=== PATIENT | male | born 1945 | race Caucasian/White ===

== ENCOUNTER 2018-02-07 14:31 | Outpatient (CLI) | payer MEDICARE, OTHER ==
--- NOTE | 2018-02-07 15:39 | RAD ---
LEFT SHOULDER THREE VIEWS: History: 72-year-old male with left shoulder pain. History of CVA affecting right side. Comparison: 09-17-15 chest x-ray FINDINGS: Marked AC joint arthrosis changes as well as glenohumeral joint arthropathy. There is a focal area of somewhat nodular ossification noted along the medial aspect of the proximal humeral metadiaphysis. T his area appear stable when compared to the prior 09-17-15 study. IMPRESSION: Stable appearing degenerative changes AC joint, glenohumeral joint, as well as some nodular stable os sification along the medial aspect of the proximal humeral metadiaphysis. POS: [facility]
== END 2018-02-07 14:32 | disposition home or self-care (01) ==
LOC: TBSIIMAG 14:31
PROVIDERS: ATTEND Psychiatry & Neurology Neurology
DX: M25.512 Pain in left shoulder (principal); M19.112 Post-traumatic osteoarthritis, left shoulder; M19.012 Primary osteoarthritis, left shoulder; M89.8X2 Other specified disorders of bone, upper arm

== ENCOUNTER 2018-07-19 16:24 | Inpatient (IN) | payer MEDICARE, OTHER ==
[~2018-07-19 16:24] MED LIST: ISOVUE-370 76%-LOCM 1 ML ONE
[2018-07-19 16:45] LABS: #Eosinphils 0.4 thou/uL (0.0-0.7); #Monocytes 0.6 thou/uL (0.11-0.59); #Neutrophils 3.6 thou/uL (1.40-6.50); %Basophils 0.3 % (0.0-1.0); %Eosinophils 6.4 % (0.0-10.0); %Lymphocytes 29.6 % (21.0-51.0); %Monocytes 9.6 % (0.0-10.0); %Neutrophils 54.2 % (42.0-75.0); Hemoglobin 12.1 g/dL (14.0-18.0); Mean Corpuscular HGB CONC 33.6 g/dL (32.0-36.0); Mean Corpuscular Hemoglobin 31.6 pg (27.0-31.0); Mean Corpuscular Volume 93.8 fL (78.0-98.0); Mean Platelet Volume 8.4 fL (7.4-10.4); Platelet Count 275 thou/uL (130-400); RBC Distribution Width 12.5 % (11.5-14.5); Red Blood Cell (RBC) Count 3.82 mill/uL (4.70-6.10); White Blood Cell (WBC) Count 6.7 thou/uL (4.8-10.8)
[2018-07-19 16:52] LABS: PTT 26.7 SEC (22.9-36.1); Prothrombin Time 13.5 SEC (12.0-14.7)
[2018-07-19 16:57] LABS: ALT (SGPT) 19 U/L (8-55); AST (SGOT) 27 U/L (5-34); Alkaline Phosphatase 92 U/L (40-150); Anion Gap 15 mmol/L (10-20); BUN (Urea Nitrogen) 13 mg/dL (8.4-25.7); Bilirubin, Total 0.3 mg/dL (0.2-1.2); Calc. Creatinine Clearance 0 mL/min (70-130); Calcium 9.6 mg/dL (7.8-10.44); Carbon Dioxide 24 mmol/L (23-31); Chloride 108 mmol/L (98-107); Estimated GFR-MDRD 78; Globulin 3.2 g/dL (2.4-3.5); Glucose 138 mg/dL (83-110); Potassium 4.5 mmol/L (3.5-5.1); Protein, Total 7.2 g/dL (5.8-8.1); Sodium 142 mmol/L (136-145)
[2018-07-19 16:59] LABS: CKMB 2.4 ng/mL (0-6.6); Troponin I Less than 0.010 ng/mL (< 0.028)
--- NOTE | 2018-07-19 17:25 | CT ---
HEAD CT WITHOUT CONTRAST: Date: 07/19/18 HISTORY: Patient was found by his . Right-sided weakness. Stroke alert. COMPARISON: 03/04/17. FINDINGS: Stable malacic changes involving the left cerebrum due to remote CVA. There is worsening loss of warner -white matter differentiation involving the left occipital lobe. Indeterminate infarct. There is no e vidence of hydrocephalus. With regard to the right cerebrum, cortical warner-white matter differentiati on is preserved. Calvarium is intact. Adequate aeration of sinuses and mastoid air cells. IMPRESSION: Remote left cerebral insult. Indeterminate insult involving the left occipital lobe. Results of study discussed with Dr. Kwon on 07/19/18 at 1656 hours. CODE CR. POS: [facility]
--- NOTE | 2018-07-19 17:48 | CT ---
CT CERVICAL SPINE NONCONTRAST: 07/19/18 HISTORY: 72-year-old male status post acute cervical trauma from fall. Patient was found down. TECHNIQUE: Although this was supposed to be a noncontrast CT of the cervical spine, there is contrast material i n the visualized arteries and veins, because this was performed along with a CT angiogram of the head . FINDINGS: There are no jumped or perched facets. There is no evidence of acute fracture. The vertebral body h eights are maintained. There is no prevertebral soft tissue swelling. There are degenerative disc c hanges and facet osteoarthrosis. IMPRESSION: 1) Cervical spondylosis. 2) No evidence of acute fracture or acute traumatic subluxation. deshawn [] POS: [facility]
--- NOTE | 2018-07-19 18:28 | RAD ---
LEFT SHOULDER THREE VIEWS: 07/19/18 COMPARISON: 02/07/18 HISTORY: fall. Pain. Trauma. FINDINGS: There is an uncomplicated left shoulder arthroplasty. Limited evaluation of the glenohumeral joint sp brenda. Based on the images provided, no dislocation. No fracture. Visualized left ribs are unremarkable . There is a well corticated ossific density inferior to the joint space measuring 1 cm. possible chron ic loose body is favored. IMPRESSION: No fracture. No obvious dislocation. POS: [facility]
[2018-07-19] MEDS ORDERED: Ondansetron ODT 4 MG TAB PO PRN (19:46)
[2018-07-19] MEDS ORDERED: Labetalol HCl 100 MG/20 ML VIAL SLOW IVP PRN (19:46)
[2018-07-19] MEDS ORDERED: Ondansetron HCl/PF 4 MG/2 ML Vial IVP PRN (19:46)
[2018-07-19] MEDS ORDERED: hydrALAZINE 20 MG/ML VIAL SLOW IVP PRN (19:46)
[2018-07-19] MEDS ORDERED: Acetaminophen 500 MG TAB PO PRN (19:46)
--- NOTE | 2018-07-19 22:15 | HP ---
DATE OF ADMISSION: 07/19/2018 PRIMARY CARE PROVIDER: Dr. Cash Neves. CHIEF COMPLAINT: Fall with stroke symptoms. HISTORY OF PRESENT ILLNESS: This is a 72-year-old male, who presents to [facility] Emergency Department accompanied by his who provides the entire history as patient has dysphas ia and aphasia. The reports the patient apparently fell in his home, landing on a recliner, kno cking it over. The patient with a history of prior CVA with residual right-sided deficits and contra cture of the right upper extremity, utilizing a right ankle brace for stabilization. The patient lorena arently had used a kayleigh-walker in the past; however, recently has been ambulating without an assistiv e device after his CVA in 2016. The patient underwent a large left MCA distribution ischemic CVA and treated with Aggrenox therapy chronically. The patient had an unwitnessed fall in the home, complai jerardo of some right and left shoulder pain. The patient's history also significant for recent left sh oulder hemiarthroplasty at the end of 05/2018, undergoing rehabilitation at [facility] facility in [place], [place], returning home on 07/13/2018. The patient had been doing well according to the , a mbulating in the home, driving occasionally, tolerating regular oral intake, and doing well. The pat ient was noted with worsening speech and increased weakness of his right lower extremity, worse than his baseline weakness. The became concerned the patient was having a stroke and EMS was notifie d. The patient underwent evaluation including stroke protocol in the emergency room with initial NIH quoted at 17. CT imaging of the brain showed no acute process with evidence of old prior infarcts. The patient was out of the therapeutic window for any acute intervention. The patient was noted wit h stable vital signs in the emergency room, alert and oriented, responding to his , in no acute d istress. The patient was referred to the stroke unit for further evaluation. PAST MEDICAL HISTORY: 1. 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 2. Chronic dysphasia/aphasia. 3. Chronic dysarthria. 4. Hypertension. 5. Dyslipidemia. 6. Coronary artery disease, status post coronary artery bypass grafting. 7. Anxiety/depression. 8. Obesity. 9. 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 10. Carotid artery disease. 11. Obstructive sleep apnea with nocturnal CPAP. PAST SURGICAL HISTORY: 1. Status post left carotid endarterectomy. 2. Status post coronary artery bypass grafting x3 vessels. 3. Status post cardiac catheterization. 4. Status post left shoulder hemiarthroplasty. CURRENT MEDICATIONS: 1. Aggrenox 25/200 mg 1 tablet p.o. daily. 2. Baclofen 20 mg p.o. q.i.d. 3. Sertraline 50 mg p.o. at bedtime. 4. Norvasc 5 mg p.o. daily. 5. Lipitor 40 mg p.o. at bedtime. 6. Vitamin B12 of 1000 mcg p.o. daily. 7. Lisinopril 20 mg p.o. b.i.d. 8. Metoprolol tartrate 25 mg p.o. b.i.d. 9. Multivitamin 1 tab p.o. daily. ALLERGIES: No known drug allergies. FAMILY HISTORY: No early premature coronary artery disease, CVA or cancer. SOCIAL HISTORY: The patient is , resides in [place], [place]. No current alcohol, tobacco or i llicit drug use. Ambulates with a right ankle brace. Recent fall with this admission. REVIEW OF SYSTEMS: The following complete review of systems was negative, unless otherwise mentioned in the HPI or below: Constitutional: Weight loss or gain, ability to conduct usual activities. Sk in: Rash, itching. Eyes: Double vision, pain. ENT/Mouth: Nose bleeding, neck stiffness, pain, te nderness. Cardiovascular: Palpitations, dyspnea on exertion, orthopnea. Respiratory: Shortness of breath, wheezing, cough, hemoptysis, fever or night sweats. Gastrointestinal: Poor appetite, abdom inal pain, heartburn, nausea, vomiting, constipation, or diarrhea. Genitourinary: Urgency, frequenc y, dysuria, nocturia. Musculoskeletal: Pain, swelling. Neurologic/Psychiatric: Anxiety, depressio n. Allergy/Immunologic: Skin rash, bleeding tendency. Otherwise negative except as stated per HPI. PHYSICAL EXAMINATION: VITAL SIGNS: On admission, blood pressure 140/62, pulse 72, respiratory rate 20, temperature 98.7 de grees Fahrenheit, O2 saturation 95% on room air. GENERAL APPEARANCE: This is a 72-year-old male, alert and oriented. Responds to questions with dysarthria and dysphasia. HEENT: Pupils are equal, round, and reactive to light and accommodation. Extraocular muscles are in tact. No scleral icterus, no conjunctival injection. Nares patent. OP is clear. Teeth in fair rep air. NECK: Supple, no cervical adenopathy, no thyromegaly, no carotid bruits, no JVD appreciated. Cervic al spine with full active and passive range of motion. No meningeal signs appreciated. CHEST: Lungs are clear to auscultation bilaterally. CARDIOVASCULAR: S1, S2, without noted murmur, rub or gallop. ABDOMEN: Obese, soft. Landmarks are difficult to palpate due to patient's body habitus. No palpabl e mass. No rebound or guarding noted. EXTREMITIES: Warm and dry with fair turgor. Minimal edema to the lower extremities. Pulses palpabl e distally at the dorsalis pedis, posterior tibial, and popliteal arteries bilaterally. Capillary re fill less than 2 seconds. NEUROLOGIC: Positive dysarthria, dysphasia with right hand contracture with right hemiparesis. Move s right lower extremity on command with weakness greater than the left lower extremity. No facial as ymmetry appreciated. PERTINENT LABORATORY AND X-RAY FINDINGS: Complete metabolic profile within normal limits. Troponin I less than 0.010. CBC showed a white blood cell count of 6.7, hemoglobin 12, hematocrit 36, platele t count 275 with normal differential. PT 13.5, INR 1.0, PTT 26.7. CT of the brain without contrast dated 07/19/2018 showed no acute intracranial process. Previous left cerebral infarct noted. Left o ccipital infarct noted. Indeterminate age. CT of the cervical spine dated 07/19/2018 showed no acut e fracture or dislocation. CT angiogram of [place] of [place] showed no focal stenosis. Two views of the left shoulder shows surgical changes with previous humeral head, hardware in appropriate position ing. Telemetry monitoring shows sinus mechanism. ASSESSMENT AND PLAN: 1. Transient ischemic attack versus new cerebrovascular accident. The patient will be admitted to [facility] stroke unit. We will proceed with MRI imaging of the brain to further delineate acute from chroni c changes noted on CT imaging. Consult Neurology Service for further assistance. Continue Aggrenox daily. Continue general stroke protocol. Check carotid Doppler study and 2D transthoracic echocardi ogram. 2. Dysarthria/dysphasia. Questionable subacute findings on exam. We will continue to monitor clini bob response as outlined in #1. 3. Carotid artery disease. Stable currently. We will obtain carotid ultrasound to assess for focal stenosis. Prior history of left carotid endarterectomy in 2016. 4. Hypertension. Resume home antihypertensive regimen once home regimen is confirmed. 5. Hyperlipidemia. Lipitor 40 mg p.o. at bedtime. Check fasting lipid profile in the a.m. 6. Status post left shoulder hemiarthroplasty. Stable currently. General supportive management. P T evaluation. 7. Prophylaxis. Sequential compression devices while in bed. Pepcid 20 mg p.o. b.i.d. General str yaron protocol including PT, OT, and speech therapy evaluation. 8. Code status is FULL. Surrogate medical decision maker is patient's spouse.
[2018-07-20] MEDS: Famotidine 20 MG TAB PO SCH ×3 (01:16→21:39)
[2018-07-20] MEDS: Aggrenox 200-25mg CAP PO SCH ×3 (01:16→21:38)
[2018-07-20] MEDS: Atorvastatin Calcium 40 MG TAB PO SCH ×3 (01:17→21:39)
[2018-07-20 06:07] LABS: Eosinophils 2 % (0-10); Hypochromia SLIGHT = 6-15 cells (100X) (0-5/hpf); Lymphocytes 34 % (21-51); MDiff Complete? YES; Mean Corpuscular HGB CONC 32.5 g/dL (32.0-36.0); Mean Corpuscular Hemoglobin 30.9 pg (27.0-31.0); Mean Platelet Volume 8.3 fL (7.4-10.4); Monocytes 6 % (0-10); Neutrophil 58 % (42-75); PLT Morphology Comment Appears Adequate; Platelet Count 233 thou/uL (130-400); RBC Distribution Width 12.8 % (11.5-14.5); Red Blood Cell (RBC) Count 3.57 mill/uL (4.70-6.10)
[2018-07-20 06:09] VITALS: BMI 35.5
[2018-07-20 06:13] LABS: Anion Gap 9 mmol/L (10-20); BUN (Urea Nitrogen) 13 mg/dL (8.4-25.7); Calc. Creatinine Clearance 136 mL/min (70-130); Calcium 8.7 mg/dL (7.8-10.44); Carbon Dioxide 27 mmol/L (23-31); Cardiac Risk 4.8 (Less than 4.5); Chloride 110 mmol/L (98-107); Cholesterol 143 mg/dl (< 200 Desired); Estimated GFR-MDRD 90; Glucose 120 mg/dL (83-110); HDL Cholesterol 30 mg/dL (>60 Neg Risk); LDL Cholesterol, Calculated 94 mg/dL; Potassium 3.8 mmol/L (3.5-5.1); Sodium 142 mmol/L (136-145); Triglycerides 97 mg/dL (Less than 150)
--- NOTE | 2018-07-20 07:56 | ULT ---
BILATERAL CAROTID DUPLEX ULTRASOUND: DATE: 07/20/18 HISTORY: Carotid stenosis, atherosclerotic vascular disease. TECHNIQUE: Munoz scale ultrasound with color flow and spectral Doppler imaging of the extracranial carotid artery systems was performed bilaterally. FINDINGS: There is plaque formation, predominantly on the right. The peak systolic velocity in the right ICA measures 179 cm/second with an end-diastolic velocity of 35 cm/second and a systolic ratio of 1.79. The peak systolic velocity in the left ICA measures 97 cm/second with an end-diastolic velocity of 16 cm/second and a systolic ratio of 0.85. Flow in both vertebral arteries remains antegrade. IMPRESSION: Moderate (50-69%) stenosis involving the right ICA. POS: [facility]
--- NOTE | 2018-07-20 12:53 | MRI ---
MRI BRAIN WITHOUT CONTRAST: HISTORY: Right-sided weakness, TIA. FINDINGS: Comparison is made with the MRI of 03/04/17. Correlation is made with the previous day's CT scan. A large old left hemispheric infarction is again seen. The ventricular size is appropriate and basilar cisterns are patent. No restricted diffusion is seen. There is hemosiderin deposition noted in the old left cerebellar hemispheric infarction. No acute hemorrhage is seen. No midline shift or abnor mal extraaxial fluid collections are identified. IMPRESSION: No evidence of acute intracranial process. POS: [facility]
--- NOTE | 2018-07-20 15:14 | PDOC.PN ---
- Subjective Encounter Start Date: 07/20/18 Encounter Start Time: 15:00 Subjective: f/u ? TIA/CVA with neg MRI of brain. Feels better overall. - Objective Resuscitation Status: Resuscitation Status FULL:Full Resuscitation MAR Reviewed: Yes Vital Signs & Weight: Vital Signs (12 hours) Temp Pulse Pulse Pulse Resp BP BP 07/20/18 13:20 75 73 151/70 H 140/66 07/20/18 11:26 98.2 F 60 16 07/20/18 10:10 154/71 H 07/20/18 08:00 98.6 F 59 L 16 07/20/18 04:00 98.4 F 61 18 BP Pulse Ox 07/20/18 13:20 07/20/18 11:26 132/63 94 L 07/20/18 10:10 07/20/18 08:00 133/63 96 07/20/18 04:00 136/63 95 Weight Weight 262 lb 3 oz I&O: 07/19/18 07/20/18 07/21/18 06:59 06:59 06:59 Intake Total 480 Balance 480 Result Diagrams: 07/20/18 05:34 07/20/18 05:34 Radiology Reviewed by me: Yes (MRI brain - no acute process) EKG Reviewed by me: Yes (Tele - SR) Phys Exam - Physical Examination Constitutional: NAD smiling, alert HEENT: PERRLA, sclera anicteric, oral pharynx no lesions Neck: no nodes, no JVD, supple, full ROM Respiratory: no wheezing, no rales, no rhonchi, clear to auscultation bilateral S1, S2 Cardiovascular: RRR, no significant murmur, no rub, gallop Gastrointestinal: soft, non-tender, no distention, positive bowel sounds Musculoskeletal: no edema, pulses present RUE weakness and hand contracture, RLE weakness baseline Neurological: moves all 4 limbs Skin: normal turgor, cap refill <2 seconds Dx/Plan (1) Dehydration Code(s): E86.0 - DEHYDRATION Status: Acute Comment: Suspect element of dehydrationl, encourage increased free-H2O intake (2) Aphasia Code(s): R47.01 - APHASIA Status: Chronic Comment: chronic due to prior L MCA territorial CVA (3) Hemiparesis affecting right side as late effect of cerebrovascular accident (CVA) Code(s): I69.351 - HEMIPLGA FOLLOWING CEREBRAL INFRC AFF RIGHT DOMINANT SIDE Status: Chronic Comment: Continue PT/OT for outpt therapy, fall risk precautions (4) Bilateral carotid artery disease Code(s): I77.9 - DISORDER OF ARTERIES AND ARTERIOLES, UNSPECIFIED Status: Chronic Qualifiers: Carotid artery disease type: stenosis Qualified Code(s): I65.23 - Occlusion and stenosis of bilateral carotid arteries Comment: No acute intervention recommended, medical mgmt (5) HLD (hyperlipidemia) Code(s): E78.5 - HYPERLIPIDEMIA, UNSPECIFIED Status: Chronic Comment: Continue Lipitor 40mg HS - Plan plan discussed w/ family, PT/OT, social director, out of bed/ambulate Stable currently -: Continue Aggrenox -: Continue Lipitor -: PT/OT for mobilization/ambulation -: Neurology consult pending * Anticipate home in am 07/21/18
--- NOTE | 2018-07-20 17:07 | EKG ---
Test Reason : Blood Pressure : / mmHG Vent. Rate : 069 BPM Atrial Rate : 069 BPM P-R Int : 148 ms QRS Dur : 092 ms QT Int : 412 ms P-R-T Axes : 062 -08 035 degrees QTc Int : 441 ms Normal sinus rhythm Low voltage QRS Incomplete right bundle branch block Borderline ECG Confirmed by DR. Diamond HDZ MD ([id number]) on 07/20/2018 5:06:52 PM Referred By: Confirmed By:DR. Diamond HDZ MD
[2018-07-20] MEDS: Baclofen 10 MG TAB PO SCH ×2 (17:37→21:38)
--- NOTE | 2018-07-20 18:59 | PRG ---
DATE OF SERVICE: 07/20/2018 CONSULTING PHYSICIAN: Hospitalist Service. Mr. Mathis has a past history of a stroke with right hemiparesis and expressive aphasia. He usually c an get around with a kayleigh-walker. His noted that he was increasingly weak and was unable to wal k yesterday. His symptoms have improved today. His carotid ultrasound showed some 50%-69% stenosis on the right. His MRI of the brain showed an old left MCA stroke, but no acute changes. His vital s igns have been stable. He has not had any type of neurologic changes otherwise. He is currently tom ing Aggrenox and Lipitor. I have suggested that they add a full-dose aspirin given the potential gretta t he had a TIA with resolution and lack of residual damage. I would be happy to follow up with him in the office.
[2018-07-20] MEDS: Metoprolol Tartrate 25 MG TAB PO SCH (21:40)
[2018-07-21] MEDS: Amlodipine 5 MG TAB PO SCH (08:36)
[2018-07-21] MEDS: Baclofen 10 MG TAB PO SCH ×4 (08:37→20:47)
[2018-07-21] MEDS: Aggrenox 200-25mg CAP PO SCH ×2 (08:37→20:45)
[2018-07-21] MEDS: Aspirin 325 mg Enteric Coated Tablet PO SCH (08:37)
[2018-07-21] MEDS: Famotidine 20 MG TAB PO SCH ×2 (08:37→20:46)
[2018-07-21] MEDS: Metoprolol Tartrate 25 MG TAB PO SCH ×2 (08:37→20:46)
[2018-07-21] MEDS: Cyanocobalamin (Vitamin B-12) 1,000 MCG TAB PO SCH (08:38)
[2018-07-21] MEDS: Multivitamin W/ Minerals 1 TAB PO SCH (08:38)
--- NOTE | 2018-07-21 10:06 | CT ---
CT ANGIOGRAM HEAD WITH IV CONTRAST AND 3D RECONSTRUCTIONS CT ANGIOGRAM NECK WITH IV CONTRAST AND 3D RECONSTRUCTIONS: Date: 07/19/18 HISTORY: Altered mental status. This examination was performed on 07/19/18, but no dictation was found, and, as a result, this exam i s being submitted for interpretation on 07/21/18. COMPARISON: 03/11/16. FINDINGS: As noted on the precontrast CT head on 07/19/18, there is an area of encephalomalacia in the distribu tion of the left middle cerebral artery consistent with large remote infarction in the distribution o f the left middle cerebral artery. Vascular calcifications are again seen in the aortic arch. Great vessels at the aortic arch do appear patent, but there is suboptimal opacification of the arterial vessels on this examination related to timing of the contrast bolus, which limits adequate evaluation. Left subclavian artery is obscured d ue to dense contrast in the left subclavian vein. The right subclavian artery is grossly patent. The innominate artery, as well as bilateral common carotid arteries appear patent, although there is sign ificant artifact through the region of the proximal left common carotid artery limiting evaluation. A s noted on the prior exam, there is moderate narrowing involving the origin and proximal right cisco certified internetwork expert al carotid artery, with the degree of narrowing approaching approximately 50% stenosis based on NASCE T criteria. While there is significant artifact extending through the region of the left common carot id artery, there does appear to be less than 50% maximal stenosis in the left internal carotid artery based on NASCET criteria. The petrous portion of the internal carotid arteries are not well opacifie d, and the carotid arteries and the siphons are also not well opacified. There are dense vascular bob cifications in the carotid siphons. Bilateral middle cerebral artery again demonstrate atherosclerotic irregularity, and were better imag ed on prior study in 2016. On that examination, there were areas of narrowing present. The anterior c erebral arteries appear grossly patent. There is evidence of carotid endarterectomy involving the proximal left internal carotid artery. The proximal vertebral arteries, including the origins, are not well assessed due to dense artifact f rom patient's left glenohumeral prosthesis and dense contrast in the subclavian vein, which limits ad equate evaluation. The visualized portions of the bilateral vertebral arteries do appear patent and c odominant. The basilar artery is small in caliber, with suggestion of mild atherosclerotic irregulari ty in the mid portion of the basilar artery. The posterior cerebral arteries demonstrate no high grad e stenosis, although there is multifocal irregularity and areas of narrowing in each posterior cerebr al artery. No definite aneurysm is seen within the limitations of the technique of this exam. Postsurgical changes related to CABG are again present. There is atelectasis seen dependently within the upper lung zones. Degenerative changes are seen in the spine. No other interval change from prior CTA examination of 2016. IMPRESSION: 1. Limited examination due to suboptimal timing of the contrast bolus, which limits adequate opacifi cation of the arterial vessels of the head and neck. However, as noted on prior exam, there is multif ocal vascular disease involving the head and neck, as described above, and better visualized on prior exam. 2. Large area of encephalomalacia related to remote infarction left middle cerebral artery distribut ion. 3. Prominent mediastinal lymph nodes, unchanged from prior exam, of uncertain etiology, with largest lymph node measuring approximately 1.0 cm in short axis dimension. POS: [facility]
--- NOTE | 2018-07-21 19:25 | PDOC.PN ---
- Subjective Encounter Start Date: 07/21/18 Encounter Start Time: 09:30 Patient seen and examined for Acute CVA. No new complaints. No new focal deficits. No overnight events - Objective Resuscitation Status: Resuscitation Status FULL:Full Resuscitation MAR Reviewed: Yes Vital Signs & Weight: Vital Signs (12 hours) Temp Pulse Resp BP BP Pulse Ox 07/21/18 15:46 97.8 F 61 16 132/57 L 95 07/21/18 11:44 98.2 F 56 L 17 141/64 H 96 07/21/18 08:36 72 177/71 H 07/21/18 08:22 96 07/21/18 07:49 97.6 F 75 16 177/71 H 96 Weight Weight 262 lb 3 oz I&O: 07/20/18 07/21/18 07/22/18 06:59 06:59 06:59 Intake Total 480 240 Balance 480 240 Result Diagrams: 07/20/18 05:34 07/20/18 05:34 EKG Reviewed by me: Yes (Tele SR) Phys Exam - Physical Examination Constitutional: NAD Respiratory: no wheezing, no rhonchi Cardiovascular: RRR, no rub Gastrointestinal: soft, positive bowel sounds Musculoskeletal: no edema Neurological: moves all 4 limbs No new focal deficits. Dx/Plan - Plan DVT proph w/SCDs IMPRESSION: 1. Suspected small vessel CVA 2. B/L Carotid artery stenosis 3. CAD s/p CABG 4. HTN / Obesity BMI 35.6/Anxiety-depression/HLD/CKD 2/ h/o CVA 5. Other issues per previous notes PLAN: Add ASA 325 mg in addition to Aggrenox per Neuro recs Stroke team Rehab eval Statins Cont current meds as below Review of Systems - Review of Systems Respiratory: negative: Cough, Dry, Shortness of Breath, Hemoptysis, SOB with Excertion, Pleuritic Pain, Sputum, Wheezing Cardiovascular: negative: chest pain, palpitations, orthopnea, paroxysmal nocturnal dyspnea, edema, light headedness, other - Medications/Allergies Allergies/Adverse Reactions: Allergies Allergy/AdvReac Type Severity Reaction Status Date / Time No Known Allergies Allergy Verified 03/04/17 14:06 Medications: Current Medications Acetaminophen (Tylenol) 1,000 mg PO Q6H PRN PRN Reason: Headache/Fever or Mild Pain Amlodipine Besylate (Norvasc) 10 mg PO DAILY [facility] Last Admin: 07/21/18 08:36 Dose: 10 mg Aspirin (Ecotrin) 325 mg PO DAILY [facility] Last Admin: 07/21/18 08:37 Dose: 325 mg Atorvastatin Calcium (Lipitor) 40 mg PO HS [facility] Last Admin: 07/20/18 21:39 Dose: Not Given Baclofen (Lioresal) 20 mg PO QID [facility] Last Admin: 07/21/18 17:44 Dose: 20 mg Cyanocobalamin (Vitamin B-12) 1,000 mcg PO DAILY [facility] Last Admin: 07/21/18 08:38 Dose: 1,000 mcg Dipyridamole/Aspirin (Aggrenox) 1 cap PO BID [facility] Last Admin: 07/21/18 08:37 Dose: 1 cap Famotidine (Pepcid) 20 mg PO BID [facility] Last Admin: 07/21/18 08:37 Dose: 20 mg Hydralazine HCl (Apresoline) 10 mg SLOW IVP Q4H PRN PRN Reason: BP > 220/110 Iron/Minerals/Multivitamins (Theragran M) 1 tab PO DAILY [facility] Last Admin: 07/21/18 08:38 Dose: 1 tab Labetalol HCl (Normodyne) 20 mg SLOW IVP Q1H PRN PRN Reason: BP > 220/110 Metoprolol Tartrate (Lopressor) 25 mg PO BID [facility] Last Admin: 07/21/18 08:37 Dose: 25 mg Ondansetron HCl (Zofran Odt) 4 mg PO Q6H PRN PRN Reason: Nausea/Vomiting Ondansetron HCl (Zofran) 4 mg IVP Q6H PRN PRN Reason: Nausea/Vomiting Sertraline HCl (Zoloft) 50 mg PO HS [facility] Last Admin: 07/20/18 21:39 Dose: 50 mg Sodium Chloride (Flush - Normal Saline) 10 ml IVF PRN PRN PRN Reason: Saline Flush Last Admin: 07/21/18 08:39 Dose: 10 ml
[2018-07-21] MEDS: Atorvastatin Calcium 40 MG TAB PO SCH (20:45)
[2018-07-22] MEDS: Baclofen 10 MG TAB PO SCH ×3 (09:28→16:47)
[2018-07-22] MEDS: Multivitamin W/ Minerals 1 TAB PO SCH (09:28)
[2018-07-22] MEDS: Aspirin 325 mg Enteric Coated Tablet PO SCH (09:28)
[2018-07-22] MEDS: Metoprolol Tartrate 25 MG TAB PO SCH (09:28)
[2018-07-22] MEDS: Amlodipine 5 MG TAB PO SCH (09:28)
[2018-07-22] MEDS: Cyanocobalamin (Vitamin B-12) 1,000 MCG TAB PO SCH (09:28)
[2018-07-22] MEDS: Famotidine 20 MG TAB PO SCH (09:29)
[2018-07-22] MEDS: Aggrenox 200-25mg CAP PO SCH (09:29)
[2018-07-22 16:19] VITALS: BP 130/68; TEMP 97.6
--- NOTE | 2018-07-22 19:49 | DIS ---
DATE OF DISCHARGE: 07/22/2018 DISCHARGE DISPOSITION: To inpatient rehabilitation. FOLLOWUP: 1. Follow up with primary care physician, Dr. Neves after 1 week. 2. Follow up with Neurology, Dr. Hagan, in 1-2 weeks. ALLERGIES: No known drug allergies. DISCHARGE MEDICATIONS: Are same as admission medications. No changes were made. He will continue A ggrenox twice a day. BRIEF HOSPITAL COURSE: Patient is a 72-year-old male with history of CVA, currently on Aggrenox pres ented to the hospital with stroke like symptoms on 07/19/2018. Please refer to the history and physi bob dictated by Dr. Franc Meredith for further details. The patient was admitted to the stroke unit with a diagnosis of suspected CVA. He underwent CT scan of the brain that was negative for acute CVA. MRI of the brain without contrast did not show acute C VA. CT angiogram of the head and neck was limited due to suboptimal timing of the contrast bolus. H e had approximately 50% stenosis in bilateral carotid artery. Carotid Doppler showed moderate 50%-69 % stenosis involving the right ICA. An echocardiogram has been done, but the report is pending at th e time of discharge. Primary care physician advised to follow. He was placed on full dose aspirin a long with Aggrenox per Dr. Hagan's recommendation. Due to high bleeding risk, family preferred to continue Aggrenox only. Family also discussed with the patient's primary neurologist Dr. Sánchez who ag abisai with continuing Aggrenox only for now. FINAL DIAGNOSES: 1. Suspected small vessel cerebrovascular accident. The patient will continue Aggrenox. 2. Bilateral carotid artery stenosis. He will need repeat imaging. His imaging studies were limite d. 3. Coronary artery disease, status post coronary artery bypass grafting. 4. Hypertension. 5. Obesity with a body mass index 35.6. 6. Anxiety and depression. 7. Hyperlipidemia. 8. Chronic kidney disease stage 2. 9. History of cerebrovascular accident. 10. Chronic anemia. SIGNIFICANT LABORATORIES: 1. Troponin was negative. 2. Cholesterol 143, LDL 94, triglyceride 97. Plan of care was discussed with the patient and the family in detail. They stated understanding. Total time coordinating the discharge of this patient was 42 minutes.
== END 2018-07-22 17:49 | DRG 65 ==
LOC: ERS 16:24 → 2SE 18:46
PROVIDERS: ADMIT Family Medicine; ATTEND Family Medicine
DX: I63.8 Other cerebral infarction (principal); I69.351 Hemiplegia and hemiparesis following cerebral infarction affecting right dominant side; I65.23 Occlusion and stenosis of bilateral carotid arteries; I69.820 Aphasia following other cerebrovascular disease; I69.821 Dysphasia following other cerebrovascular disease; R29.717 NIHSS score 17; E78.5 Hyperlipidemia, unspecified; I25.10 Atherosclerotic heart disease of native coronary artery without angina pectoris; Z95.1 Presence of aortocoronary bypass graft; M19.012 Primary osteoarthritis, left shoulder; I69.322 Dysarthria following cerebral infarction; G47.33 Obstructive sleep apnea (adult) (pediatric); E66.9 Obesity, unspecified; Z68.35 Body mass index [BMI] 35.0-35.9, adult; F41.9 Anxiety disorder, unspecified; F32.9 Major depressive disorder, single episode, unspecified; I12.9 Hypertensive chronic kidney disease with stage 1 through stage 4 chronic kidney disease, or unspecified chronic kidney disease; N18.2 Chronic kidney disease, stage 2 (mild); D64.9 Anemia, unspecified
CPT/HCPCS: 36415; 70450; 70496; 70498; 70551; 72125; 80048; 80053; 80061; 82553; 84484; 85007; 85025; 85027; 85610; 85730; 93005; 93306; 93880; G8978-GP-CL; G8979-GP-CJ; G8987-GO-CM; G8988-GO-CJ; G9162-GN-CK; G9163-GN-CK

== ENCOUNTER 2019-07-30 13:23 | Emergency (ER) | payer MEDICARE, OTHER ==
[2019-07-30 14:06] LABS: #Eosinphils 0.1 thou/uL (0.0-0.7); #Lymphocytes 0.8 thou/uL (1.20-3.40); #Monocytes 1.1 thou/uL (0.11-0.59); #Neutrophils 11.2 thou/uL (1.40-6.50); %Basophils 0.1 % (0.0-1.0); %Eosinophils 0.5 % (0.0-10.0); %Lymphocytes 5.7 % (21.0-51.0); %Monocytes 8.1 % (0.0-10.0); %Neutrophils 85.6 % (42.0-75.0); Hemoglobin 13.7 g/dL (14.0-18.0); Mean Corpuscular Hemoglobin 32.5 pg (27.0-31.0); Mean Corpuscular Volume 92.9 fL (78.0-98.0); Mean Platelet Volume 8.8 fL (7.4-10.4); Platelet Count 174 thou/uL (130-400); Red Blood Cell (RBC) Count 4.22 mill/uL (4.70-6.10); White Blood Cell (WBC) Count 13.1 thou/uL (4.8-10.8)
[2019-07-30 14:10] LABS: Bacteria/HPF 4+ HPF (None Seen); Bilirubin Negative (Negative); Blood, Urine Negative (Negative); Clarity Clear (Clear); Glucose, Urine (Dipstick) Normal (Negative); Leukocyte 250 Leu/uL (Negative); Mucous/LPF 1+ LPF (<2+); Nitrite 1+ (Negative); Protein, Urine (Dipstick) Negative (Neg-Trace); RBC/HPF 0-3 HPF (0-3); Squamous Epithelial 0-3 HPF (0-3); Urobilinogen Normal mg/dL (Less than 2)
[2019-07-30 14:31] LABS: ALT (SGPT) 20 U/L (8-55); AST (SGOT) 19 U/L (5-34); Albumin 3.9 g/dL (3.4-4.8); Alkaline Phosphatase 65 U/L (40-110); Anion Gap 13 mmol/L (10-20); BUN (Urea Nitrogen) 12 mg/dL (8.4-25.7); Bilirubin, Total 0.6 mg/dL (0.2-1.2); Calc. Creatinine Clearance 0 mL/min (70-130); Calcium 8.7 mg/dL (7.8-10.44); Carbon Dioxide 23 mmol/L (23-31); Chloride 106 mmol/L (98-107); Estimated GFR-MDRD 90; Globulin 2.8 g/dL (2.4-3.5); Glucose 136 mg/dL (83-110); Lipase 7 U/L (8-78); Potassium 3.8 mmol/L (3.5-5.1); Protein, Total 6.7 g/dL (5.8-8.1); Sodium 138 mmol/L (136-145)
--- NOTE | 2019-07-30 15:03 | RAD ---
EXAM: CHEST ONE VIEW HISTORY: Chest pain. Nausea and vomiting. COMPARISON: 03/27/2016 FINDINGS: Postsurgical changes related to CABG are again noted. Cardiac silhouette and bronchovascular markings are accentuated by shallow depth inspiration portable technique of the study. There is bibasilar atelectasis present. No consolidation or definite pleural effusion is seen. Postsurgical changes left shoulder are partially imaged. No other interval change from prior study. IMPRESSION: Bibasilar atelectasis but otherwise no acute cardiopulmonary process.
--- NOTE | 2019-08-01 17:20 | EKG ---
Test Reason : NV Blood Pressure : / mmHG Vent. Rate : 105 BPM Atrial Rate : 105 BPM P-R Int : 148 ms QRS Dur : 092 ms QT Int : 358 ms P-R-T Axes : 064 -11 048 degrees QTc Int : 473 ms Sinus tachycardia with Premature atrial complexes with Abberant conduction Incomplete right bundle branch block Borderline ECG No ST elevation/[place] Confirmed by TREE ANDINO D.O. ([id number]), city editor BENNY BROWN ([id number] on 08/01/2019 5:20:14 PM Referred By: Confirmed By:TREE ANDINO D.O.
== END 2019-07-30 15:27 | disposition home or self-care (01) ==
LOC: ERS 13:23
DX: N39.0 Urinary tract infection, site not specified (principal); R11.2 Nausea with vomiting, unspecified; E78.5 Hyperlipidemia, unspecified; E78.00 Pure hypercholesterolemia, unspecified; I10 Essential (primary) hypertension; Z86.73 Personal history of transient ischemic attack (TIA), and cerebral infarction without residual deficits; Z79.899 Other long term (current) drug therapy
CPT/HCPCS: 36415; 71045; 80053; 81003; 81015; 83605; 83690; 84484; 85025; 87077; 87086; 87186; 93005; 96360

== ENCOUNTER 2024-09-18 11:24 | Emergency (ER) | payer MEDICARE, OTHER ==
[2024-09-18 13:06] LABS: #Basophils 0.03 10x3/uL (0.0-0.2); %Basophils 0.7 % (0.0-1.0); %Eosinophils 3.2 % (0.0-10.0); %Lymphocytes 33.3 % (21.0-51.0); %Monocytes 9.7 % (0.0-10.0); %Neutrophils 52.9 % (42.0-75.0); Hematocrit 35.9 % (42.0-52.0); Hemoglobin 12.2 g/dL (14.0-18.0); Mean Corpuscular Hemoglobin 30.7 pg (27.0-31.0); Mean Corpuscular Volume 90.2 fL (78.0-98.0); Mean Platelet Volume 11.9 fL (7.4-10.4); Platelet Count 184 10x3/uL (130-400); RBC Distribution Width 13.1 % (11.5-14.5); Red Blood Cell (RBC) Count 3.98 mill/uL (4.70-6.10)
[2024-09-18 13:18] LABS: Bacteria/HPF None Seen HPF (None Seen); Bilirubin Negative (Negative); Blood, Urine Negative (Negative); CAUTI Indications for Culture Alt mental st,lethar; Clarity Clear (Clear); Glucose, Urine (Dipstick) Normal (Negative); Ketone, Urine Negative (Negative); Leukocyte Negative Leu/uL (Negative); Nitrite Negative (Negative); Protein, Urine (Dipstick) Negative (Neg-Trace); RBC/HPF None Seen HPF (0-3); Specific Gravity, Urine 1.006 (1.002-1.036); Squamous Epithelial None Seen HPF (0-3); Urobilinogen Normal mg/dL (Less than 2); WBC/HPF 0-3 HPF (0-3)
[2024-09-18 13:20] LABS: Urine Culture Reflex No No
[2024-09-18 13:23] LABS: ALT (SGPT) 18 U/L (8-55); AST (SGOT) 24 U/L (5-34); Albumin 3.9 g/dL (3.4-4.8); Alkaline Phosphatase 42 U/L (40-110); Anion Gap 10 mmol/L (10-20); BUN (Urea Nitrogen) 19 mg/dL (8.4-25.7); Bilirubin, Total 0.4 mg/dL (0.2-1.2); Calc. Creatinine Clearance 0 mL/min (70-130); Calcium 9.4 mg/dL (7.8-10.44); Carbon Dioxide 33 mmol/L (23-31); Chloride 103 mmol/L (98-107); Estimated GFR 81; Globulin 2.7 g/dL (2.4-3.5); Glucose 92 mg/dL (83-110); Potassium 3.6 mmol/L (3.5-5.1); Protein, Total 6.6 g/dL (5.8-8.1); Sodium 142 mmol/L (136-145)
[2024-09-18 13:44] LABS: Troponin I Less than 0.010 ng/mL (< 0.028)
== END 2024-09-18 14:53 | disposition home or self-care (01) ==
LOC: ERS 11:24
DX: R53.1 Weakness (principal); I10 Essential (primary) hypertension; Z55.6 Problems related to health literacy; Z95.1 Presence of aortocoronary bypass graft; Z96.612 Presence of left artificial shoulder joint
CPT/HCPCS: 36415; 70450; 71045; 80053; 81001; 83880; 84484; 85025; 93005